=== PATIENT | female | born 1965 | race American Indian/Alaskan Native ===

== ENCOUNTER 2017-09-03 18:02 | Emergency (ER) | payer OTHER, BC ==
[2017-09-03 18:06] VITALS: BMI 27.6
[2017-09-03 18:12] VITALS: RESP 18; TEMP 100.8; O2SAT 99
--- NOTE | 2017-09-03 18:33 | ED PDOC ---
Arrival/HPI - General Chief Complaint: Abdominal Pain Time Seen by Provider: 09/03/17 18:26 Historian: Patient - History of Present Illness Narrative History of Present Illness (Text): 09/03/17 18:31 52yo female with PMhx of hypertension who present with complaint of diffuse sharp abdominal pain, headache, subjective fever x2days. States her grandson had similar symptoms and she took care of him. She denies nausea, vomiting, diarrhea, constipation, melena, hematemesis, urinary symptoms, chest pain, any other complaint. Past Medical History - Provider Review Nursing Documentation Reviewed: Yes - Infectious Disease Hx of Infectious Diseases: None - Cardiac Hx Hypertension: Yes - Psychiatric Hx Substance Use: No - Surgical History Other/Comment: R knee miniscus tear repair - Anesthesia Hx Anesthesia Reactions: No Hx Malignant Hyperthermia: No Family/Social History - Physician Review Nursing Documentation Reviewed: Yes Family/Social History: Unknown Family HX Smoking Status: Never Smoked Hx Alcohol Use: No Hx Substance Use: No Allergies/Home Meds Allergies/Adverse Reactions: Allergies No Known Allergies Allergy (Verified 09/03/17 18:06) Review of Systems - Physician Review All systems were reviewed & negative as marked: Yes - Review of Systems Constitutional: Fevers Eyes: Normal ENT: Normal Respiratory: Normal Cardiovascular: Normal Gastrointestinal: Abdominal Pain. absent: Constipation, Diarrhea, Nausea, Vomiting, Hematochezia, Hematemesis Genitourinary Female: Normal Musculoskeletal: Normal Skin: Normal Neurological: Headache. absent: Dizziness, Focal Weakness Endocrine: Normal Hemo/Lymphatic: Normal Psychiatric: Normal Physical Exam Vital Signs Reviewed: Yes Vital Signs Temp Pulse Resp BP Pulse Ox 09/03/17 18:02 100.8 F H 99 H 18 137/89 99 Temperature: Afebrile Blood Pressure: Normal Pulse: Regular Respiratory Rate: Normal Appearance: Positive for: Well-Appearing, Non-Toxic, Comfortable Pain Distress: None Mental Status: Positive for: Alert and Oriented X 3 - Systems Exam Head: Present: Atraumatic, Normocephalic Pupils: Present: PERRL Extroacular Muscles: Present: EOMI Conjunctiva: Present: Normal Mouth: Present: Moist Mucous Membranes Neck: Present: Normal Range of Motion Respiratory/Chest: Present: Clear to Auscultation, Good Air Exchange. No: Respiratory Distress, Accessory Muscle Use Cardiovascular: Present: Regular Rate and Rhythm, Normal S1, S2. No: Murmurs Abdomen: Present: Tenderness (diffuse), Normal Bowel Sounds (Hyperactive diffusely), Other (soft). No: Distention, Peritoneal Signs, Rebound, Guarding, McBurney's Point Tender, Rovsing's Sign Present Back: Present: Normal Inspection Upper Extremity: Present: Normal Inspection. No: Cyanosis, Edema Lower Extremity: Present: Normal Inspection. No: Edema Neurological: Present: GCS=15, CN II-XII Intact, Speech Normal Skin: Present: Warm, Dry, Normal Color. No: Rashes Psychiatric: Present: Alert, Oriented x 3, Normal Insight, Normal Concentration Medical Decision Making ED Course and Treatment: 09/03/17 20:11 PT presented for stated history. She was not lethargic. Hemodynamically stable. On re evaluation she notes that her symptoms improved. Lab was unremarkable. Result was DW the pt. she noted that her grandson had same symptoms prior to her own symptoms. She will be DC home with Zantac. Referred to her PMD. - Lab Interpretations Lab Results: 09/03/17 19:07 09/03/17 19:07 Lab Results 09/03/17 19:07: Sodium 138, Potassium 3.6, Chloride 100, Carbon Dioxide 27, Anion Gap 14, BUN 10, Creatinine 0.9, Est GFR ( Amer) > 60, Est GFR (Non- Af Amer) > 60, Random Glucose 99, Calcium 9.4, Total Bilirubin 0.5, AST 28, ALT 38, Alkaline Phosphatase 86, Lactate Dehydrogenase 522, Total Creatine Kinase 147, Troponin I < 0.01, Total Protein 8.1, Albumin 4.4, Globulin 3.7, Albumin/ Globulin Ratio 1.2, Amylase 106, Lipase 130 09/03/17 19:07: Urine Color Yellow, Urine Appearance Clear, Urine pH 6.0, Ur Specific [place] 1.010, Urine Protein Negative, Urine Glucose (UA) Negative, Urine Ketones Negative, Urine Blood Trace H, Urine Nitrate Negative, Urine Bilirubin Negative, Urine Urobilinogen 0.2, Ur Leukocyte Esterase Negative, Urine RBC 5 - 10, Urine WBC 2 - 5, Ur Epithelial Cells 10 - 12 09/03/17 19:07: PT 12.5, INR 1.09 H, APTT 29.8 09/03/17 19:07: WBC 5.8, RBC 5.48, Hgb 14.3, Hct 42.5, MCV 77.6 L, MCH 26.1, MCHC 33.6, RDW 13.7, Plt Count 237, MPV 8.8, Gran % 70.4 H, Lymph % (Auto) 22.1 , [place] % (Auto) 7.3 H, Eos % (Auto) 0.2 L, Baso % (Auto) 0.0, Gran # 4.05, Lymph # (Auto) 1.3, [place] # (Auto) 0.4, Eos # (Auto) 0.0, Baso # (Auto) 0.00 09/03/17 19:07: Lactic Acid 1.4 - Medication Orders Current Medication Orders: Discontinued Medications Famotidine (Pepcid) 20 mg IVP STAT STA Stop: 09/03/17 18:27 Famotidine (Pepcid 20mg/50ml Premix) 20 mg in 50 mls @ 200 mls/hr IVPB ONCE ONE Stop: 09/03/17 18:59 Last Admin: 09/03/17 19:06 Dose: 200 mls/hr eMAR Start Stop Document 09/03/17 19:06 EQ (Rec: 09/03/17 19:06 EQ [id number]) Intravenous Solution Start Date 09/03/17 Start Time 19:06 Disposition/Present on Arrival - Present on Arrival Any Indicators Present on Arrival: No History of DVT/PE: No History of Uncontrolled Diabetes: No Urinary Catheter: No History of Decub. Ulcer: No History Surgical Site Infection Following: None - Disposition Have Diagnosis and Disposition been Completed?: Yes Diagnosis: Abdominal pain Disposition: HOME/ ROUTINE Disposition Time: 20:20 Patient Plan: Discharge Condition: STABLE Discharge Instructions (ExitCare): Acute Abdomen (Belly Pain), Adult (DC) Additional Instructions: Follow up with your doctor Return to ED for any new or worsening symptoms Prescriptions: Ranitidine HCl [Zantac] 150 mg PO DAILY #20 tablet Referrals: [facility] [place]] - Follow up with primary Forms: [employer] (Congolese)
[2017-09-03] MEDS ORDERED: Famotidine 20mg/50ml 20 MG/50 ML BAG IVPB ONE (18:45)
[2017-09-03 19:12] LABS: EOS % 0.2 % (1.5-5.0); GRAN # 4.05 (1.4-6.5); GRAN % 70.4 % (50.0-68.0); HEMOGLOBIN 14.3 g/dL (12.0-16.0); LYMPH # 1.3 (1.2-3.4); LYMPH % 22.1 % (22.0-35.0); MEAN CELL VOLUME 77.6 fl (80.0-105.0); MEAN CORPUSCULAR HEMOGLOBIN 26.1 pg (25.0-35.0); MEAN CORPUSCULAR HGB CONC 33.6 g/dl (31.0-37.0); MEAN PLATELET VOLUME 8.8 fl (7.0-11.0); MONO # 0.4 (0.1-0.6); MONO % 7.3 % (1.0-6.0); RBC 5.48 10^6/uL (3.5-6.1); RED CELL DISTRIBUTION WIDTH 13.7 % (11.5-14.5); WHITE BLOOD COUNT 5.8 10^3/ul (4.5-11.0)
[2017-09-03 19:13] LABS: URINE BILIRUBIN NEGATIVE (NEGATIVE); URINE GLUCOSE (UA) NEGATIVE (NEGATIVE); URINE LEUKOCYTE ESTERASE NEGATIVE Leu/uL (NEGATIVE); URINE PROTEIN NEGATIVE mg/dL (<30 mg/dL); URINE UROBILINOGEN 0.2 E.U./dL (<1 E.U./dL)
[2017-09-03 19:33] LABS: URINE APPEARANCE CLEAR (CLEAR); URINE BLOOD TRACE (NEGATIVE); URINE COLOR YELLOW (YELLOW)
[2017-09-03 19:37] LABS: INR 1.09 (0.93-1.08); PARTIAL THROMBOPLASTIN TIME 29.8 Seconds (25.1-36.5); PROTHROMBIN TIME 12.5 SECONDS (9.4-12.5)
[2017-09-03 19:57] LABS: TROPONIN I < 0.01 ng/mL
[2017-09-03 20:07] LABS: ALB/GLOB RATIO 1.2 (1.1-1.8); ALBUMIN 4.4 g/dL (3.0-4.8); ALT/SGPT 38 U/L (7-56); AMYLASE 106 U/L (35-125); AST/SGOT 28 U/L (14-36); BLOOD UREA NITROGEN 10 mg/dL (7-21); CALCIUM 9.4 mg/dL (8.4-10.5); GFR AFRICAN-AMERICAN > 60; GFR NON-AFRICAN AMERICAN > 60; LIPASE 130 U/L (23-300)
[2017-09-03 20:50] VITALS: BP 142/85; PULSE 89
--- NOTE | 2017-09-04 19:28 | CARD ---
APPROVED REPORT EKG Measurement Heart [id number] <Conclusion> Normal sinus rhythm Normal ECG
== END 2017-09-03 21:07 | disposition home or self-care (01) ==
LOC: ED 18:02
DX: R10.9 Unspecified abdominal pain (principal); I10 Essential (primary) hypertension